=== PATIENT | female | born 1995 | race Native Hawaiian/Other Pacific Islander ===

== ENCOUNTER 2018-08-15 16:11 | Emergency (ER) | payer SELFPAY ==
--- NOTE | 2018-08-15 16:23 | Emergency Department Report ---
Blank Doc - Documentation Documentation: This is a 23-year-old female that presents with nausea vomiting and abdominal pain. Denies any radiation. This initial assessment diagnostic orders/clinical plan/treatment(s) is/are subject to change based on patient's health status, clinical progression and re- assessment by fellow clinical providers in the ED. Further treatment and workup at subsequent clinical providers discretion. Patient/guardians urged not to elope from ED s their condition may be serious if not clinically assessed and managed. Initial orders include: 1-Patient sent to [facility] for further evaluation and treatment 2- UA 3- labs
--- NOTE | 2018-08-15 16:38 | Emergency Department Report ---
<JAZZY GRIFFITHS T - Last Filed: 08/15/18 18:50> ED Abdominal Pain HPI - General Chief Complaint: Nausea/Vomiting/Diarrhea Stated Complaint: STOMACH PAIN Time Seen by Provider: 08/15/18 16:22 Source: patient Mode of arrival: Ambulatory Limitations: No Limitations - History of Present Illness Initial Comments: Pt reports RLQ pain x 4 days few episodes of vomiting also somewhat constipated no urinary complaints, no vaginal discharge MD Complaint: abdominal pain -: Gradual, days(s) (4) Location: RLQ Radiation: none Migration to: no migration Severity: moderate Severity scale (0 -10): 8 Quality: cramping, aching Consistency: constant Improves With: nothing Worsens With: nothing Associated Symptoms: nausea, vomiting, constipation. denies: dysuria - Related Data LMP (females 10-50): 1 month Previous Rx's Medication Instructions Recorded Last Taken Type Ibuprofen [Ibu] 400 mg PO Q8H PRN #30 tablet 08/16/18 Unknown Rx traMADol [Ultram 50 MG tab] 50 mg PO Q6HR PRN #12 tablet 08/16/18 Unknown Rx Allergies Allergy/AdvReac Type Severity Reaction Status Date / Time No Known Allergies Allergy Unverified 08/15/18 16:15 ED Review of Systems Comment: All other systems reviewed and negative Gastrointestinal: as per HPI, abdominal pain, nausea, vomiting, constipation ED Past Medical Hx - Past Medical History Previous Medical History?: No - Surgical History Past Surgical History?: No - Social History Smoking Status: Never Smoker Substance Use Type: None - Medications Home Medications: Home Medications Medication Instructions Recorded Confirmed Last Taken Type Ibuprofen [Ibu] 400 mg PO Q8H PRN #30 tablet 08/16/18 Unknown Rx traMADol [Ultram 50 MG tab] 50 mg PO Q6HR PRN #12 tablet 08/16/18 Unknown Rx ED Physical Exam - General Limitations: No Limitations General appearance: alert, in no apparent distress - Head Head exam: Present: atraumatic, normocephalic - Eye Eye exam: Present: normal appearance - ENT ENT exam: Present: mucous membranes moist - Neck Neck exam: Present: normal inspection - Respiratory Respiratory exam: Present: normal lung sounds bilaterally. Absent: respiratory distress - Cardiovascular Cardiovascular Exam: Present: regular rate, normal rhythm. Absent: systolic murmur, diastolic murmur, rubs, gallop - GI/Abdominal GI/Abdominal exam: Present: soft, tenderness (RLQ, suprapubic), normal bowel sounds. Absent: distended, guarding, rebound, rigid - Extremities Exam Extremities exam: Present: normal inspection - Back Exam Back exam: Present: normal inspection - Neurological Exam Neurological exam: Present: alert, oriented X3 - Psychiatric Psychiatric exam: Present: normal affect, normal mood - Skin Skin exam: Present: warm, dry, intact, normal color. Absent: rash ED Medical Decision Making - Lab Data Result diagrams: 08/15/18 Unknown 08/15/18 Unknown - Radiology Data Radiology results: report reviewed possible ruptured ovarian cyst but appendix not identified on CT - Medical Decision Making RLQ pain x 4 days few episodes vomiting rlq ttp on exam, no guarding ddx- cyst, appy, colitis plan for labs and CT labs show mild leukocytosis CT shows likely ruptured cyst, appendix not visualized I called and spoke with radiologist, Dr. Schultz who recommends pelvic US states he does believe fluid is due to ruptured cyst, but cannot definitively say pt signed out to Viktoriya Morales PA-C at shift change. - Differential Diagnosis appy, cyst, uti, ED Disposition Clinical Impression: Rupture of follicular cyst of ovary Ovarian cyst Qualifiers: Laterality: bilateral Qualified Code(s): N83.201 - Unspecified ovarian cyst, r ight side; N83.202 - Unspecified ovarian cyst, left side Abdominal pain Qualifiers: Abdominal location: right lower quadrant Qualified Code(s): R10.31 - Right lower quadrant pain Disposition: - TO HOME OR SELFCARE Condition: Stable Instructions: Ovarian Cyst (ED) Additional Instructions: Please take pain medication only as needed. Please increase her water intake while taking pain medication. Please do not operate heavy machinery while taking pain medication. Please return back to the emergency room if any w orsening abdominal pain uncontrolled vomiting. Recommend she follow up with the [facility] provider to have your ovarian cysts evaluated. Prescriptions: Ibuprofen [Ibu] 400 mg PO Q8H PRN #30 tablet PRN Reason: Pain , Severe (7-10) traMADol [Ultram 50 MG tab] 50 mg PO Q6HR PRN #12 tablet PRN Reason: Pain [facility] [Primary Care Provider] - 3-5 Days [facility] [Provider Group] - 3-5 Days [facility] [Provider Group] - 3-5 Days Forms: Work/School Release Form(ED), Accompanied Note <CHARLES MORALES - Last Filed: 08/16/18 00:19> ED Review of Systems ROS: Stated complaint: STOMACH PAIN Other details as noted in HPI ED Course Vital Signs 08/15/18 08/15/18 08/15/18 16:20 17:05 21:35 Temperature 97.8 F Pulse Rate 110 H Respiratory 16 18 18 Rate Blood Pressure 137/103 Blood Pressure [Left] O2 Sat by Pulse 100 Oximetry 08/15/18 22:50 Temperature 98.2 F Pulse Rate 88 Respiratory 18 Rate Blood Pressure Blood Pressure 113/72 [Left] O2 Sat by Pulse 98 Oximetry - Reevaluation(s) Reevaluation #1: 08/15/18 21:33 Went to evaluate patient she is reporting that she is having severe pain on the right lower quadrant and requesting pain medication. Provider ordered Dilaudid 1 mg and Zofran 4 mg IV. ED Medical Decision Making - Lab Data Result diagrams: 08/15/18 Unknown 08/15/18 Unknown - Radiology Data Radiology results: report reviewed Patient: ROSELIA ELIZONDO MR#: [id number] : 1995 Acct:[id number] Age/Sex: 23 / F ADM Date: 08/15/18 Loc: ED Attending Dr: Ordering Physician: YAYA SHIRLEY Date of Service: 08/15/18 Procedure(s): US pelvic complete Accession Number(s): [id number] cc: YAYA SHIRLEY FINAL REPORT PROCEDURE: US PELVIC COMPLETE TECHNIQUE: Real-time transabdominal sonography in multiple planes of pelvis was performed with image documentation. This examination was performed without Doppler. Vascular abnormalities, including ovarian torsion, will not be detectable without Doppler evaluation. CPT 68415 HISTORY: Right lower quadrant pain. COMPARISON: No prior studies are available for comparison. FINDINGS: Image quality is limited because the bladder was incompletely distended. The uterus measures approximately 8.9 centimeters x 4.5 centimeters x 4.9 centimeters. The myometrium is grossly normal. The endometrial echo complex appears normal and measures 12.0 millimeters. Neither ovary is identified. There is no definite free fluid in the cul-de-sac. IMPRESSION: Limited study. Nonvisualization of the ovaries. Transcribed By: LAZARO Dictated By: JEANNE GARCIA MD Electronically Authenticated By: JEANNE GARCIA MD Signed Date/Time: 08/15/182146 DD/ 45 TD/TT: 08/15/182145 Patient: ROSELIA ELIZONDO MR#: [id number] : 1995 Acct:[id number] Age/Sex: 23 / F ADM Date: 08/15/18 Loc: ED Attending Dr: Ordering Physician: YAYA SHIRLEY Date of Service: 08/15/18 Procedure(s): US transvaginal Accession Number(s): [id number] cc: YAYA SHIRLEY FINAL REPORT PROCEDURE: Transvaginal pelvic ultrasound with Doppler. TECHNIQUE: Real-time transvaginal sonography in multiple planes of the pelvis was performed with image documentation. Grayscale, color flow Doppler imaging and velocity spectral waveform analysis of the ovaries was employed (duplex imaging). CPT 36829 and 69573 HISTORY: Right lower quadrant pain COMPARISON: No prior studies are available for comparison. FINDINGS: The uterus appears retroverted. The myometrium appears uniform. There are no uterine masses. The endometrial echo complex appears normal. The endometrium measures 11.1 millimet ers. Both ovaries appear normal in size and contain small follicles. There is normal ovarian blood flow demonstrated bilaterally by Doppler spectral analysis and color-flow imaging. There is a small fluid filled mass located lateral to the right ovary. This measures 1.5 centimeters in diameter. T his may represent a para ovarian cyst. It could also represent a fluid-filled bowel loop. There is a similar cystic mass located lateral to the left ovary. This measures 1.2 centimeters in diameter. It also may represent a para ovarian cyst. I see no definite signs of dilated fallopian tubes. There is a moderate amount of free fluid in the pelvis. IMPRESSION: Normal appearing uterus. Normal appearing ovaries. Small cystic masses adjacent to each ovary. Free fluid in the cul-de-sac. Transcribed By: LAZARO Dictated By: JEANNE GARCIA MD Electronically Authenticated By: JEANNE GARCIA MD Signed Date/Time: 08/15/182157 DD/ 56 TD/TT: 08/15/182156 Patient: ROSELIA ELIZONDO MR#: [id number] : 1995 Acct:[id number] Age/Sex: 23 / F ADM Date: 08/15/18 Loc: ED Attending Dr: Ordering Physician: YAYA SHIRLEY Date of Service: 08/15/18 Procedure(s): CT abdomen pelvis w con Accession Number(s): [id number] cc: YAYA SHIRLEY FINAL REPORT PROCEDURE: CT ABDOMEN PELVIS W CON TECHNIQUE: Computerized axial tomography of the abdomen and pelvis was performed after the IV injection of iodinated nonionic contrast. HISTORY: RLQ pain COMPARISON: No prior studies are available for comparison. FINDINGS: Lower Lung fabian: No focal abnormality seen. Upper Abdomen: There is subtle decreased density seen along the edges of the falciform ligament anteriorly, this is a common area for focal fatty infiltration. The liver is otherwise unremarkable. The gallbladder showed no abnormalities. The adrenal glands, the pancreas and spleen are unremarkable. Kidneys, Ureters and Urinary bladder: No abnormalities are seen. Retroperitoneum: Abdominal aorta appears normal. Nonspecific subcentimeter lymph nodes are seen in the retroperitoneum. No pathologically enlarged lymph nodes are identified. Bowel: The appendix is not visualized. No free air is seen. There is no evidence of bowel obstruction. No free intraperitoneal gas is visualized. Reproductive organs: Uterus and left adnexa are unremarkable with the exception of small, 9 millimeters cystic area left ovary likely representing maturing follicle. There is an irregular- shaped cystic area in the right adnexa likely in the right ovary. There is a small amount of fluid in the adjacent posterior cul-de-sac. This may represent recently ruptured f ollicle. Other: No acute bony abnormalities are seen. IMPRESSION: Irregular density right adnexa suggesting a recently ruptured follicle with a small amount of adjacent fluid. Correlation with test recommended to ensure there is no evidence of ectopic . This may represent recently ruptured follicle. If clinically indicated pelvic ultrasound could be obtained for further evaluation. The appendix is not visualized. Subtle decreased density left lobe of the liver adjacent to the falciform ligament suggesting focal fatty infiltration. Transcribed By: RUDDY Dictated By: GEE SCHULTZ MD Electronically Authenticated By: GEE SCHULTZ MD Signed Date/Time: 08/15/181834 DD/ 33 TD/TT: 08/15/181833 - Medical Decision Making Ultrasound completed with an addendum that they were not able to appreciate the appendix but see no inflammatory changes. Patient be discharged home with specific instructions if she starts to have any worsening abdominal pains to return back to the emergency room immediately. Patient was given a prescription for tramadol and ibuprofen and referral to [facility] for follow-up on her ovarian cysts. Patient verbalized understanding. Critical care attestation.: If time is entered above; I have spent that time in minutes in the direct care of this critically ill patient, excluding procedure time. ED Disposition Is pt being admited?: No Does the pt Need Aspirin: No
[2018-08-15] MEDS ORDERED: MORPHINE ONE (16:54)
[2018-08-15] MEDS ORDERED: ZOFRAN ONE (16:54)
[2018-08-15] MEDS ORDERED: ZOFRAN IV ONE ×3 (17:00→21:23)
[2018-08-15] MEDS ORDERED: MORPHINE IV ONE ×2 (17:00→17:03)
[2018-08-15 17:19] LABS: Basophils # (Auto) 0.1 K/mm3 (0.0-0.1); Basophils % (Auto) 0.4 % (0.0-1.8); Eosinophils # (Auto) 0.1 K/mm3 (0.0-0.4); Eosinophils % (Auto) 0.5 % (0.0-4.3); Hematocrit 41.6 % (30.3-42.9); Hemoglobin 14.7 gm/dl (10.1-14.3); Lymphocytes # (Auto) 1.3 K/mm3 (1.2-5.4); Lymphocytes % (Auto) 10.2 % (13.4-35.0); Mean Corpuscular HGB Conc 35 % (30-34); Mean Corpuscular Volume 90 fl (79-97); Monocytes # (Auto) 0.7 K/mm3 (0.0-0.8); Monocytes % (Auto) 5.4 % (0.0-7.3); Platelet Count 269 K/mm3 (140-440); Red Blood Count 4.63 M/mm3 (3.65-5.03); Red Cell Distribution Width 12.4 % (13.2-15.2)
[2018-08-15 17:19] LABS: Bilirubin,Urine NEG (Negative); Blood,Urine NEG (Negative); Color,Urine Straw (Yellow); Protein,Urine <15 mg/dL mg/dL (Negative); Urobilinogen,Urine < 2.0 mg/dL (<2.0)
[2018-08-15 17:39] LABS: Alanine Aminotransferase 14 units/L (7-56); Albumin 4.5 g/dL (3.9-5); BUN/Creatinine Ratio 25; Blood Urea Nitrogen 10 mg/dL (7-17); Calcium 9.4 mg/dL (8.4-10.2); Hemolysis Index 63
[2018-08-15 17:45] LABS: Bilirubin,Direct < 0.2 mg/dL (0-0.2)
--- NOTE | 2018-08-15 18:35 | Cat Scan Report ---
FINAL REPORT PROCEDURE: CT ABDOMEN PELVIS W CON TECHNIQUE: Computerized axial tomography of the abdomen and pelvis was performed after the IV inject ion of iodinated nonionic contrast. HISTORY: RLQ pain COMPARISON: No prior studies are available for comparison. FINDINGS: Lower Lung fabian: No focal abnormality seen. Upper Abdomen: There is subtle decreased density seen along the edges of the falciform ligament anter iorly, this is a common area for focal fatty infiltration. The liver is otherwise unremarkable. The g allbladder showed no abnormalities. The adrenal glands, the pancreas and spleen are unremarkable. Kidneys, Ureters and Urinary bladder: No abnormalities are seen. Retroperitoneum: Abdominal aorta appears normal. Nonspecific subcentimeter lymph nodes are seen in the retroperitoneum. No pathologically enlarged lym ph nodes are identified. Bowel: The appendix is not visualized. No free air is seen. There is no evidence of bowel obstruction . No free intraperitoneal gas is visualized. Reproductive organs: Uterus and left adnexa are unremarkable with the exception of small, 9 millimete rs cystic area left ovary likely representing maturing follicle. There is an irregular-shaped cystic area in the right adnexa likely in the right ovary. There is a small amount of fluid in the adjacent posterior cul-de-sac. This may represent recently ruptured follicle. Other: No acute bony abnormalities are seen. IMPRESSION: Irregular density right adnexa suggesting a recently ruptured follicle with a small amount of adjacen t fluid. Correlation with test recommended to ensure there is no evidence of ectopic pregna ncy. This may represent recently ruptured follicle. If clinically indicated pelvic ultrasound could b e obtained for further evaluation. The appendix is not visualized. Subtle decreased density left lobe of the liver adjacent to the falciform ligament suggesting focal f atty infiltration.
[2018-08-15] MEDS ORDERED: DILAUDID IV ONE (21:23)
--- NOTE | 2018-08-15 21:47 | Ultrasound Report ---
FINAL REPORT PROCEDURE: US PELVIC COMPLETE TECHNIQUE: Real-time transabdominal sonography in multiple planes of pelvis was performed with image documentation. This examination was performed without Doppler. Vascular abnormalities, including ova caity torsion, will not be detectable without Doppler evaluation. CPT 94993 HISTORY: Right lower quadrant pain. COMPARISON: No prior studies are available for comparison. FINDINGS: Image quality is limited because the bladder was incompletely distended. The uterus measures approxim ately 8.9 centimeters x 4.5 centimeters x 4.9 centimeters. The myometrium is grossly normal. The endo metrial echo complex appears normal and measures 12.0 millimeters. Neither ovary is identified. There is no definite free fluid in the cul-de-sac. IMPRESSION: Limited study. Nonvisualization of the ovaries.
--- NOTE | 2018-08-15 21:58 | Ultrasound Report ---
FINAL REPORT PROCEDURE: Transvaginal pelvic ultrasound with Doppler. TECHNIQUE: Real-time transvaginal sonography in multiple planes of the pelvis was performed with [employer] documentation. Grayscale, color flow Doppler imaging and velocity spectral waveform analysis of th e ovaries was employed (duplex imaging). CPT 77063 and 47519 HISTORY: Right lower quadrant pain COMPARISON: No prior studies are available for comparison. FINDINGS: The uterus appears retroverted. The myometrium appears uniform. There are no uterine masses. The endo metrial echo complex appears normal. The endometrium measures 11.1 millimeters. Both ovaries appear n ormal in size and contain small follicles. There is normal ovarian blood flow demonstrated bilaterall y by Doppler spectral analysis and color-flow imaging. There is a small fluid filled mass located lat eral to the right ovary. This measures 1.5 centimeters in diameter. This may represent a para ovarian cyst. It could also represent a fluid-filled bowel loop. There is a similar cystic mass located late ral to the left ovary. This measures 1.2 centimeters in diameter. It also may represent a para ovaria n cyst. I see no definite signs of dilated fallopian tubes. There is a moderate amount of free fluid in the pelvis. IMPRESSION: Normal appearing uterus. Normal appearing ovaries. Small cystic masses adjacent to each ovary. Free f luid in the cul-de-sac.
[2018-08-15 22:51] VITALS: BP 113/72
== END 2018-08-16 00:37 | disposition home or self-care (01) ==
LOC: ED 16:11
DX: N83.201 Unspecified ovarian cyst, right side (principal); N83.202 Unspecified ovarian cyst, left side; N83.00 Follicular cyst of ovary, unspecified side
CPT/HCPCS: 36415; 74177; 76830; 76856; 80048; 80076; 81001; 83690; 84703; 85025; 96374; 96375; 96376; 99284; J1170; J2270; J2405; Q9967